=== PATIENT | female | born 1980 | race Hispanic/Latino ===

== ENCOUNTER 2018-11-09 17:43 | Day surgery (SDC) | payer MEDICAID, OTHER ==
[2018-11-09 18:22] VITALS: BMI 34.9
[2018-11-09 18:35] VITALS: BP 130/73; TEMP 98.7
[2018-11-09 20:04] LABS: Bilirubin Negative (Negative); Blood, Urine Negative (Negative); Clarity CLEAR (Clear); Glucose, Urine (Dipstick) 250 mg/dL (Negative); Leukocyte Trace (Negative); Nitrite Negative (Negative); Protein, Urine (Dipstick) Negative (Neg-Trace); pH, Urine 5.5 (5.0-9.0)
[2018-11-09 20:06] LABS: Bacteria/HPF None Seen HPF (None Seen); Hyaline Casts/LPF 0-3 HYALINE CAST LPF (0-3 Hyaline); Pathc Cast-AUWi Flag 0.87 (0-2.49); RBC/HPF 0-3 HPF (0-3); Squamous Epithelial 0-3 HPF (0-3); WBC/HPF 0-3 HPF (0-3)
[2018-11-09 20:15] LABS: #Eosinphils 0.1 thou/uL (0.0-0.7); #Monocytes 0.6 thou/uL (0.11-0.59); #Neutrophils 6.7 thou/uL (1.40-6.50); %Basophils 0.1 % (0.0-1.0); %Eosinophils 1.1 % (0.0-10.0); %Lymphocytes 12.1 % (21.0-51.0); %Monocytes 6.7 % (0.0-10.0); Hemoglobin 13.4 g/dL (12.0-16.0); Mean Corpuscular Hemoglobin 32.4 pg (27.0-31.0); Mean Corpuscular Volume 92.8 fL (78.0-98.0); Mean Platelet Volume 8.5 fL (7.4-10.4); Platelet Count 148 thou/uL (130-400); RBC Distribution Width 13.2 % (11.5-14.5); Red Blood Cell (RBC) Count 4.12 mill/uL (4.20-5.40); White Blood Cell (WBC) Count 8.3 thou/uL (4.8-10.8)
[2018-11-09 20:16] LABS: Crystals/HPF None Seen HPF (Negative)
[2018-11-09 20:34] LABS: ALT (SGPT) 18 U/L (8-55); AST (SGOT) 32 U/L (5-34); Albumin 3.6 g/dL (3.5-5.0); Alkaline Phosphatase 112 U/L (40-150); Anion Gap 13 mmol/L (10-20); BUN (Urea Nitrogen) 7 mg/dL (7.0-18.7); Bilirubin, Total 0.7 mg/dL (0.2-1.2); Calc. Creatinine Clearance 215 mL/min (70-130); Calcium 9.3 mg/dL (7.8-10.44); Carbon Dioxide 21 mmol/L (22-29); Chloride 105 mmol/L (98-107); Estimated GFR-MDRD Greater than 90; Globulin 3.8 g/dL (2.4-3.5); Glucose 109 mg/dL (70-105); Potassium 3.9 mmol/L (3.5-5.1); Protein, Total 7.4 g/dL (6.0-8.3); Sodium 135 mmol/L (136-145)
--- NOTE | 2018-11-10 03:55 | SS ---
DATE OF ADMISSION: 11/09/2018 DATE OF DISCHARGE: 11/09/2018 LABOR AND DELIVERY TRIAGE NOTE: DATE OF EVALUATION: 11/09/2018. REGULAR PHYSICIAN: Janeen Bejarano MD. EVALUATING PHYSICIAN: Wu Gardner MD CHIEF COMPLAINT: Lower back discomfort, nausea, vomiting, vaginal discharge, and toothache. HISTORY OF PRESENT ILLNESS: Ms. Biswas is a 38-year-old , G5, P4, with an estimated date of confinement of 01/01/2019, who presents with multiple complaints this evening complaining of lower abdominal cramping with back discomfort, nausea with an episode of vomiting, yellow vaginal discharge, and a toothache that she states she has had over the last several days. She denies active vaginal bleeding or ruptured membranes. Her care has been with Dr. Janeen Bejarano and has been complicated by gestational diabetes for which she is on metformin. PAST OBSTETRICAL HISTORY: Four vaginal deliveries, 2 of these were at 34 and 35 weeks respectively. PAST MEDICAL HISTORY: None. CURRENT MEDICATIONS: vitamins and metformin. PAST SURGICAL HISTORY: Includes stripping of varicose veins. ALLERGIES: NO KNOWN ALLERGIES. SOCIAL HISTORY: She denies tobacco, alcohol, or drug use. FAMILY HISTORY: Unremarkable. REVIEW OF SYSTEMS: Positive for nausea, vomiting, toothache, and vaginal discharge. She denies fever or chills. PHYSICAL EXAMINATION: VITAL SIGNS: Stable. She is afebrile. HEENT: back molar broken, gum is swollen ABDOMEN: Soft, nontender, and gravid. heart tones are stable. There are no decelerations. No uterine contractions are seen. LABORATORY DATA: White count is 8.3, hemoglobin and hematocrit 13.4 and 38.2, and platelet count 148,000. Chemistry; sodium 135, potassium 3.9, BUN of 7, creatinine 0.59, glucose is 113, and bilirubin 0.7. AST and ALT are 32 and 18. Urinalysis is clear with negative blood, negative nitrites, and trace leukocyte esterase. No bacteria were seen on microscope. ASSESSMENT: 1. 32 and 3/7th week intrauterine . 2. No evidence of labor, urinary tract infection. 3. Toothache. PLAN: At this time, we will discharge her to home with precautions. I did empirically give her prescriptions for amoxicillin 500 mg one p.o. 4 times a day for 10 days as well as Flagyl 250 mg one p.o. t.i.d. for 10 days. She states that she is in the process in trying to find a dentist. She will follow up per her routine with Dr. Bejarano. She voiced understanding of all our discharge instructions and was sent home in good condition. Job ID: [id number] MTDD
== END 2018-11-09 23:39 | disposition home or self-care (01) ==
LOC: L&D/OP 17:43
PROVIDERS: ATTEND Student in an Organized Health Care Education/Training Program
DX: O23.43 Unspecified infection of urinary tract in pregnancy, third trimester (principal); O99.89 Other specified diseases and conditions complicating pregnancy, childbirth and the puerperium; K08.89 Other specified disorders of teeth and supporting structures; M54.5 Low back pain; R10.30 Lower abdominal pain, unspecified; N89.8 Other specified noninflammatory disorders of vagina; O24.415 Gestational diabetes mellitus in pregnancy, controlled by oral hypoglycemic drugs; Z3A.32 32 weeks gestation of pregnancy; Z79.84 Long term (current) use of oral hypoglycemic drugs; Z79.899 Other long term (current) drug therapy
CPT/HCPCS: 36415; 36416; 80053; 81003; 81015; 85025; 87480; 87510; 87660

== ENCOUNTER 2018-12-16 13:59 | Day surgery (SDC) | payer OTHER ==
[2018-12-16 14:37] VITALS: BMI 35.1
[2018-12-16 14:41] VITALS: BP 128/83; TEMP 98.2
--- NOTE | 2018-12-16 15:38 | PDOC.FPROB ---
FMR OB H&P: HPI - History of Present Illness Chief Complaint: green discharge, irregular cxns Indentification: at 37.5 wks History of Present Illness: This is a woman at 37.5wks GA who comes in for evaluation of discharge and abdominal pain going on for 3 days. She describes the discharge as thick and green. Denies irritation or pain in the vagina. She denies burning or blood with urination. She denies any new sexual partners, SO in the room also denies new sexual partners. Patient was treated for gonorrhea at week 8 of the with MIRANDA. Patient also received a course of flagyl and amoxicillin mid -November for treatment of a dental infection. + FM. She describes contractions as abdominal "hardening, like a brick" happens every hour about 3-4 times a day. Patient is scheduled for induction 12/18/18 for GDM Primary Care Physician: Ron FMR OB H&P: Current - Care : 5 Para: 4 Gestational age: 37.5 Due date: 01/01/19 Course/Complications: +cfDNA for T21 - OB Labs Gonorrhea: negative Chlamydia: positive A1c: 5.Nov FMR OB H&P: History - Past Medical History PMH: Bipolar, MDD, GDM - OB History OB History: at 34, 35, 37 and 38 weeks Has been receiving mikena shots this up to 36 wks - QUANTITATIVE ANALYST History QUANTITATIVE ANALYST History: ASCUS PAP this a previously provider told her she needed a LEEP but she never followed up + chlamydia early this - Surgical History Sx History: denies abdominal surgeries or d&c - Social History Social History: denies smoking, alc, drugs this FMR OB H&P: Medications - Current Home Medications: Medication Instructions Recorded Confirmed Type PNV With CA,No.71/Iron/FA 2 tablet PO DAILY 02/10/15 12/18/18 History [ Vitamin Tablet] metFORMIN HCl [Metformin HCl] 1,000 mg PO BID 11/09/18 12/18/18 History Allergies/Adverse Reactions: Allergies Allergy/AdvReac Type Severity Reaction Status Date / Time No Known Drug Allergies Allergy Verified 11/09/18 18:43 FMR OB H&P: ROS - Review of Systems General: denies: fever/chills, night sweats, fatigue Eyes: denies: eye pain, double vision ENT: denies: rhinorrhea, sore throat, trouble with swallowing Cardiovascular: denies: chest pain, palpitation Respiratory: denies: cough, congestion, shortness of breath Gastrointestinal: reports: abdominal pain (cxns). denies: bloating, cramping, nausea, vomiting, diarrhea Genitourinary (Female): reports: hesitancy. denies: dysuria, hematuria Musculoskeletal: denies: stiffness, tenderness Neurologic: denies: numbness, syncope, seizures Integumentary: denies: itching, rash FMR OB H&P: Vital Signs - Maternal Vital signs: Vital Signs - First Documented Temp Pulse Resp BP 98.2 F 103 H 103 H 128/83 12/16/18 14:37 12/16/18 14:37 12/16/18 14:37 12/16/18 14:37 - Heart Tones Baseline: 140 Variability: moderate Acceleration: present Deceleration: absent [place] contractions every: x1 in 20 minutes FMR OB H&P: Physical Exam - Physical Exam General: NAD, awake, alert and oriented HEENT: normocephalic and atraumatic, PERRLA, EOMI Breast: symmetric, non-tender Heart: RRR, normal S1/S2, no murmurs/rubs/gallops General: CTAB, no respiratory distress, good air movement, no wheezing Abdomen: soft, gravid, fundus(cm), non-tender, bowel sound present Musculoskeletal: normal gait and station, pulses present Neurological: cranial nerves II through XII intact, sensation to pain,touch and proprioception grossly normal Skin: no rash, good tugor, capillary refill <2 seconds Lymphatic: no unusual bruising or bleeding Psychiatric: intact recent and remote memory - Pelvic Exam SVE: /-2 FMR OB H&P: A/P - Problem List (1) Status: Resolved Discussion: Date/Time: 12/16/18 1535 at 37.5 wks here for vaginal d/c - hx of chlamydia this w/ MIRANDA - recently treated with amox/flagyl for toothache - will check GC/CT - UA negative for infxn, + glucose - no evidence of cxns - scheduled for IOL 12/18/18 2/2 GDM - checked in office 3 days ago 2cm at that time, /2 today - Reactive NST - GC/CT should be back by 12/18/18 in time for induction - discussed triage precautions This H&P was discussed with Dr. Bui who agrees with the above documentation and plan. Addendum - Attending - Attending Attestation Date/Time: 12/18/18 0903 I personally evaluated the patient and discussed the management with Dr. Lake I agree with the History, Examination, Assessment and Plan documented above with any addition or exceptions noted below. GC/CT pending
[2018-12-16 15:59] LABS: Bilirubin Negative (Negative); Blood, Urine Negative (Negative); Clarity CLEAR (Clear); Glucose, Urine (Dipstick) >=1000 mg/dL (Negative); Leukocyte Negative (Negative); Nitrite Negative (Negative); Protein, Urine (Dipstick) Trace mg/dL (Neg-Trace); Specific Gravity, Urine 1.035 (1.002-1.036); pH, Urine 5.5 (5.0-9.0)
[2018-12-16 16:02] LABS: Bacteria/HPF None Seen HPF (None Seen)
[2018-12-16 16:04] LABS: Pathc Cast-AUWi Flag 5.52 (0-2.49)
[2018-12-16 16:14] LABS: RBC/HPF 0-3 HPF (0-3)
[2018-12-16 16:15] LABS: Crystals/HPF 2+ CA OXALATE HPF (Negative); Hyaline Casts/LPF 0-3 HYALINE CAST LPF (0-3 Hyaline); Other Casts/LPF None Seen LPF (0-3 Hyaline)
[2018-12-16 16:17] LABS: Urine Culture Reflex No No
[2018-12-18 22:19] LABS: Chlamydia by PCR Not Detected (NotDetected); GC by PCR Not Detected (NotDetected)
== END 2018-12-16 16:48 | disposition home or self-care (01) ==
LOC: L&D/OP 13:59
PROVIDERS: ATTEND Obstetrics & Gynecology
DX: O99.89 Other specified diseases and conditions complicating pregnancy, childbirth and the puerperium (principal); N89.8 Other specified noninflammatory disorders of vagina; O99.343 Other mental disorders complicating pregnancy, third trimester; F31.9 Bipolar disorder, unspecified; O24.419 Gestational diabetes mellitus in pregnancy, unspecified control; O98.813 Other maternal infectious and parasitic diseases complicating pregnancy, third trimester; Z3A.37 37 weeks gestation of pregnancy
CPT/HCPCS: 51701; 81001; 87491; 87591; 99283; A4353

== ENCOUNTER 2018-12-18 06:00 | Inpatient (IN) | payer OTHER ==
--- NOTE | 2018-12-17 15:45 | PDOC.LDHP ---
Labor and Delivery H&P Chief complaint: scheduled induction HPI: 38 yo @ 38w0d by LMP c/w 9 week CRL who presents for IOL due to A2DM on Metformin. 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 Current gestational age (weeks): 38 Due date: 01/01/19 Dating criteria: last menstrual period Grav: 5 Para: 4 OB History Details: 2 SVDs 2 term SVDs Current complications: gestational diabetes, other (Fetus trisomy 21 mosaic AMA H/o PTD) Abnormal US findings: No Past Medical History: Obesity Current medications: pre-prince vitamins, other (Metformin 1500 mg QAM, 1000 mg QHS) Previous surgical history: other (Treatment of varicose veins) Allergies/Adverse Reactions: Allergies Allergy/AdvReac Type Severity Reaction Status Date / Time No Known Drug Allergies Allergy Verified 11/09/18 18:43 Social history: none - Physical Exam Vital signs reviewed and normal: yes General: NAD Heart: RRR Lungs: nonlabored breathing Abdomen: gravid Extremeties: no edema FHT: category 1 (130s, mod akshat, +accels, no decesl) [place] contractions every: q2-5 min - Vaginal Exam cm dilated: 4 (per RN exam ) Effacement: 50% Station: -2 - OB Labs Blood type: O RH: positive Antibody Screen: negative HIV: negative RPR: negative HEPSAg: negative 1 hour GCT: positive 3 hour GTT: not done due to 1hr = 243 GBS: positive Urine drug screen: not done Rubella: immune Additional Labs: Amnio mosaic T21 msAFP wnl 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 FOB negative CT + > MIRANDA negative - Assessment 38w0d IUP A2DM AMA Fetus with Trisomy 21 mosaic H/o PTD + CT, negative MIRANDA GBS+ EFW > 90% - Plan Plan: admit to L&D (IOL with pitocin), GBS antibiotic prophylaxis, informed consent obtained, anesthesia consult for pain management -: NICU consult due to Trisomy 21 mosaic on amniocentesis (no abnormal anatomical findings on MFM evaluation). Collect cord blood for confirmation at delivery. Risk of possible macrosomia reviewed with pt.
[2018-12-18] MEDS ORDERED: Ibuprofen 800 MG TAB PO PRN (07:01)
[2018-12-18] MEDS ORDERED: Acetaminophen 500 MG TAB PO PRN (07:01)
[2018-12-18] MEDS ORDERED: HYDROcodone/Acetaminophen 5/325 mg Tablet PO PRN ×2 (07:01→15:59)
[2018-12-18] MEDS ORDERED: Carboprost 250 MCG/ML AMP IM PRN (07:01)
[2018-12-18] MEDS ORDERED: NS / Oxytocin 40 units/1000ml 1,000 ML IV PRN (07:01)
[2018-12-18] MEDS ORDERED: Diphenoxylate HCl/Atropine Tablet PO PRN (07:01)
[2018-12-18] MEDS ORDERED: Penicillin G Potassium 5 MILL.UNITS in Sodium Chloride 0.9% 100 ML IVPB SCH (07:01)
[2018-12-18] MEDS ORDERED: Misoprostol 200 MCG TAB PR PRN (07:01)
[2018-12-18] MEDS ORDERED: Butorphanol Tartrate 1 MG/ML VIAL SLOW IVP PRN (07:01)
[2018-12-18] MEDS ORDERED: Methylergonovine 0.2 MG/ML VIAL IM PRN ×2 (07:01→15:59)
[2018-12-18] MEDS ORDERED: Ondansetron PF 4 MG/2 ML Vial IVP PRN ×2 (07:01→11:23)
[2018-12-18] MEDS ORDERED: Promethazine HCl 25 MG/ML VIAL IM PRN ×2 (07:01→11:23)
[2018-12-18] MEDS ORDERED: Lidocaine 1% (PF) 30 ML VIAL SC PRN (07:01)
[2018-12-18 07:06] VITALS: BMI 36.1
[2018-12-18] MEDS: Lactated Ringer's 1,000 ML IV SCH ×2 (07:20→11:26)
[2018-12-18] MEDS: NS w/ Oxytocin 10 units 500 ML IV SCH ×2 (07:32→23:24)
[2018-12-18 08:33] LABS: Hemoglobin 12.7 g/dL (12.0-16.0); Mean Corpuscular HGB CONC 35.1 g/dL (32.0-36.0); Mean Corpuscular Hemoglobin 32.9 pg (27.0-31.0); Mean Corpuscular Volume 93.6 fL (78.0-98.0); Mean Platelet Volume 9.3 fL (7.4-10.4); Platelet Count 173 thou/uL (130-400); RBC Distribution Width 12.6 % (11.5-14.5); Red Blood Cell (RBC) Count 3.87 mill/uL (4.20-5.40); White Blood Cell (WBC) Count 8.5 thou/uL (4.8-10.8)
[2018-12-18 09:11] LABS: Syphilis Antibody Nonreactive (Nonreactive); Syphilis Antibody Index 0.05 S/CO (<1.00 Non-Reactive)
[2018-12-18 09:13] LABS: HBSAg Index 0.19 S/CO (0-0.99); HIV (1/2) Antibody/Antigen Non-Reactive (NonReactive); HIV 1/2 INDEX 0.08 S/CO (<1.00); Hep B Surf Ag Non-Reactive S/CO (NonReactive)
[2018-12-18] MEDS ORDERED: Fentanyl 4 mcg/Bup 0.1% Cadd 100 ML ONE (10:47)
[2018-12-18] MEDS ORDERED: Lidocaine 1.5%/Epinephrine 1:200,000 5 ML AMPUL IJ ONE ×2 (10:48→10:50)
[2018-12-18] MEDS ORDERED: ePHEDrine/0.9% NaCl/PF SYRINGE 50 mg/10 ml SLOW IVP PRN (11:23)
[2018-12-18] MEDS ORDERED: Naloxone HCl 0.4 mg/ml Vial IVP PRN ×2 (11:23)
[2018-12-18] MEDS ORDERED: diphenhydrAMINE 50 MG/ML VIAL IVP PRN (11:23)
[2018-12-18] MEDS ORDERED: Eucerin (Mineral Oil/Petrolatum,White) 30 gm Jar TOP PRN (11:23)
[2018-12-18] MEDS ORDERED: Acetaminophen 325 MG TAB PO PRN (11:23)
[2018-12-18] MEDS ORDERED: Lactated Ringer's 500 ML IV PRN (11:23)
[2018-12-18] MEDS ORDERED: Communication Order-Pharmacy FS SCH (11:30)
[2018-12-18] MEDS ORDERED: Fentanyl 4 mcg/Bupivacaine 0.1% Cassette 100 ML EPIDURAL SCH (11:30)
[2018-12-18] MEDS: Penicillin G 2.5 MILL.units 2.5 MILL.UNITS in Premix Bag 1 BAG IVPB SCH ×4 (12:10→23:23)
--- NOTE | 2018-12-18 12:37 | PDOC.LDPN ---
Labor & Delivery Progress Note - Subjective Subjective: comfortable - Objective Vital signs reviewed and normal: yes General: NAD Uterine fundus: non tender Dilation: 4 Effacement: 50% Station: -2 FHT: category 2 (130s, mod akshat, +accels, some variable decels wtih ctx after srom) [place] contractions every: q3 min Procedures: SROM clear fluid with SVE IUPC placed: yes - Assessment (1) 38 weeks gestation of Code(s): Z3A.38 - 38 WEEKS GESTATION OF Current Visit: Yes Status : Acute (2) Gestational diabetes Code(s): O24.419 - GESTATIONAL DIABETES MELLITUS IN , UNSP CONTROL Current Visit: Yes Status: Acute (3) AMA (advanced maternal age) multigravida 35+ Code(s): O09.529 - SUPERVISION OF ELDERLY MULTIGRAVIDA, UNSPECIFIED TRIMESTER Current Visit: Yes Status: Acute (4) Trisomy 21 of fetus in current diallo Code(s): O35.1XX0 - MATERNAL CARE FOR CHROMOSOMAL ABNORMALITY IN FETUS, UNSP Current Visit: Yes Status: Acute Plan: resuscitative measures -: Continue pitocin GBS PPX If variables continue consider amnioinfusion Accuchecks in labor
[2018-12-18 13:47] LABS: Amphetamine Not Detected (NotDetected); Barbiturates Screen Not Detected (NotDetected); Benzodiazepine Screen Not Detected (NotDetected); Cocaine Metabolite Screen Not Detected (NotDetected); Medtox Control Line Valid? VALID (VALID); Medtox Reader # READER 4; Methadone Not Detected (NotDetected); Methamphetamine Not Detected (NotDetected); Opiate Screen Not Detected (NotDetected); Oxycodone Screen Not Detected (NotDetected); Phencyclidine (PCP) Not Detected (NotDetected); THC/Cannabinoid Screen Not Detected (NotDetected); Tricyclic Screen Not Detected (NotDetected)
[2018-12-18] MEDS ORDERED: NS / Oxytocin 40 units/1000ml 1,000 ML ONE (14:27)
[2018-12-18] MEDS ORDERED: Lidocaine 1% (PF) 30 ML VIAL ONE (14:27)
--- NOTE | 2018-12-18 15:12 | PDOC.OPDEL ---
OB Operative/Delivery Note Delivery Dr/Surgeon: Ciera Velasquez DO Pre-Delivery Diagnosis: medically indicated induction Procedure/Post Delivery Dx: spontaneous vaginal delivery Weeks gestation: 38 Anesthesia: epidural - Findings A Sex: female - 1 min: 8 - 5 min: 9 - Additional Findings/Plan Placenta delivered: manual removal Repaired Obstetrical Laceration: none Estimated blood loss: QBL 686 mL Compilations/Other Findings: in cephalic presentation. JANNETTE atony leading to increase QBL. Methergine, hemabate and cytotec given with resolution of atony and resolution of bleeding. Normal appearing placenta. Chromosomal analysis collected from cord blood Post delivery plan: routine recovery
[2018-12-18] MEDS ORDERED: NS / Oxytocin 40 units/1000ml 1,000 ML IV SCH (15:59)
[2018-12-18] MEDS ORDERED: diphenhydrAMINE 25 MG CAP PO PRN (15:59)
[2018-12-18] MEDS ORDERED: Preparation H Ointment 28 GM TUBE PR PRN (15:59)
[2018-12-18] MEDS ORDERED: Benzocaine/Menthol 20-0.5% 60 ML CAN TOP PRN (15:59)
[2018-12-18] MEDS ORDERED: Bisacodyl 10 MG SUPP PR PRN (15:59)
[2018-12-18] MEDS ORDERED: Lanolin Ointment 7 GM TUBE TOP PRN (15:59)
[2018-12-18] MEDS ORDERED: Milk Of Magnesia 30 ML UDCUP PO PRN (15:59)
[2018-12-18] MEDS: Ferrous Sulfate 325 MG TAB PO SCH (17:26)
[2018-12-18 19:20] LABS: #Eosinphils 0.1 thou/uL (0.0-0.7); #Lymphocytes 1.2 thou/uL (1.20-3.40); #Monocytes 0.8 thou/uL (0.11-0.59); #Neutrophils 10.3 thou/uL (1.40-6.50); %Eosinophils 0.5 % (0.0-10.0); %Monocytes 6.1 % (0.0-10.0); %Neutrophils 83.4 % (42.0-75.0); Hemoglobin 13.1 g/dL (12.0-16.0); Mean Corpuscular HGB CONC 34.5 g/dL (32.0-36.0); Mean Corpuscular Hemoglobin 32.7 pg (27.0-31.0); Mean Corpuscular Volume 94.8 fL (78.0-98.0); Mean Platelet Volume 8.9 fL (7.4-10.4); Platelet Count 150 thou/uL (130-400); RBC Distribution Width 12.5 % (11.5-14.5); Red Blood Cell (RBC) Count 3.99 mill/uL (4.20-5.40); White Blood Cell (WBC) Count 12.4 thou/uL (4.8-10.8)
[2018-12-18] MEDS: Ibuprofen 800 MG TAB PO SCH (20:04)
[2018-12-18] MEDS: Docusate Calcium (SURFAK) 240 MG CAP PO SCH (22:55)
[2018-12-19] MEDS: Ibuprofen 800 MG TAB PO SCH ×3 (05:21→21:31)
[2018-12-19 06:23] LABS: #Eosinphils 0.1 thou/uL (0.0-0.7); #Monocytes 0.6 thou/uL (0.11-0.59); #Neutrophils 5.3 thou/uL (1.40-6.50); %Basophils 0.4 % (0.0-1.0); %Eosinophils 1.5 % (0.0-10.0); %Lymphocytes 25.3 % (21.0-51.0); %Monocytes 6.9 % (0.0-10.0); %Neutrophils 65.9 % (42.0-75.0); Mean Corpuscular HGB CONC 34.4 g/dL (32.0-36.0); Mean Corpuscular Hemoglobin 32.7 pg (27.0-31.0); Mean Platelet Volume 8.4 fL (7.4-10.4); Platelet Count 145 thou/uL (130-400); RBC Distribution Width 12.6 % (11.5-14.5); Red Blood Cell (RBC) Count 3.67 mill/uL (4.20-5.40); White Blood Cell (WBC) Count 8.1 thou/uL (4.8-10.8)
--- NOTE | 2018-12-19 07:56 | PDOC.PP ---
Post Progress Note Post Day #: 1 PO intake tolerated: yes Flatus: yes Ambulation: yes Vital Signs (12 hours) Temp Pulse Resp BP BP Pulse Ox 12/19/18 05:20 97.9 F 84 16 117/62 12/18/18 23:25 98.2 F 81 16 110/59 L 12/18/18 20:35 98.4 F 94 18 119/61 95 Weight Weight 238 lb - Physical Examination General: NAD Respiratory: non-labored breathing Abdominal: no distention, appropriately TTP Fundus firm & at: umb Skin: no rash Neurological: no gross focal deficits Psychiatric: normal affect Result Diagrams: 12/19/18 06:15 Additional Labs: Post Labs Blood Type O POSITIVE 12/18/18 07:51 Hep Bs Antigen Non-Reactive S/CO (NonReactive) 12/18/18 07:51 - Assessment/Plan PPD1 s/p TSVD VSSAF Doing well lochia < menses Breast and bottelfeeding, LC consult Rh pos RImm DC home FU 4 wks for BTL
[2018-12-19] MEDS: Docusate Calcium (SURFAK) 240 MG CAP PO SCH ×2 (09:32→21:30)
[2018-12-19] MEDS: Ferrous Sulfate 325 MG TAB PO SCH ×2 (09:41→21:34)
[2018-12-19 10:38] LABS: Reference Lab Name NEOGENOMICS
[2018-12-19 10:39] LABS: Ref Lab Test Ordered CONST CHROM ANALYSIS
[2018-12-19] MEDS: Penicillin G 2.5 MILL.units 2.5 MILL.UNITS in Premix Bag 1 BAG IVPB SCH ×3 (14:15→21:34)
[2018-12-20] MEDS: Ibuprofen 800 MG TAB PO SCH ×2 (05:52→13:55)
[2018-12-20] MEDS: NS w/ Oxytocin 10 units 500 ML IV SCH (06:12)
--- NOTE | 2018-12-20 08:12 | PDOC.PP ---
Post Progress Note Post Day #: 1 Subjective: Pain and lochia minimal. Breast and bottle feeding, minimal at this time. receiving evaluation due to Trisomy 21 (reason for hold on d/c) PO intake tolerated: yes Flatus: yes Ambulation: yes Weight Weight 238 lb - Physical Examination General: NAD Cardiovascular: RRR Abdominal: no distention, appropriately TTP Fundus firm & at: below umbilicus Extremities: negative homans (B) Neurological: no gross focal deficits Psychiatric: A&Ox3 Result Diagrams: 12/19/18 06:15 Additional Labs: Post Labs Blood Type O POSITIVE 12/18/18 07:51 Hep Bs Antigen Non-Reactive S/CO (NonReactive) 12/18/18 07:51 (1) 38 weeks gestation of Code(s): Z3A.38 - 38 WEEKS GESTATION OF Status: Resolved (2) Gestational diabetes Code(s): O24.419 - GESTATIONAL DIABETES MELLITUS IN , UNSP CONTROL Status: Resolved (3) AMA (advanced maternal age) multigravida 35+ Code(s): O09.529 - SUPERVISION OF ELDERLY MULTIGRAVIDA, UNSPECIFIED TRIMESTER Status: Resolved (4) Trisomy 21 of fetus in current diallo Code(s): O35.1XX0 - MATERNAL CARE FOR CHROMOSOMAL ABNORMALITY IN FETUS, UNSP Status: Resolved (5) Vaginal delivery Code(s): O80 - ENCOUNTER FOR FULL-TERM UNCOMPLICATED DELIVERY Status: Acute - Assessment/Plan PPD2 VSSAF Stable for d/c home when infant ready for d/c
[2018-12-20] MEDS: Ferrous Sulfate 325 MG TAB PO SCH (08:15)
[2018-12-20] MEDS: Docusate Calcium (SURFAK) 240 MG CAP PO SCH (08:16)
[2018-12-20] MEDS: Penicillin G 2.5 MILL.units 2.5 MILL.UNITS in Premix Bag 1 BAG IVPB SCH ×2 (08:17→13:56)
[2018-12-20 08:51] VITALS: BP 114/67; TEMP 97.8
== END 2018-12-20 16:55 | disposition home or self-care (01) | DRG 807 ==
LOC: L&D 06:28 → 3SW 17:06
PROVIDERS: ADMIT Obstetrics & Gynecology; ATTEND Obstetrics & Gynecology
PROC: 10E0XZZ Delivery of Products of Conception, External Approach (ICD-10-PCS; principal; 2018-12-18)
DX: O24.425 Gestational diabetes mellitus in childbirth, controlled by oral hypoglycemic drugs (principal); Z37.0 Single live birth; O24.429 Gestational diabetes mellitus in childbirth, unspecified control; Z3A.38 38 weeks gestation of pregnancy; O35.1XX0 Maternal care for (suspected) chromosomal abnormality in fetus, not applicable or unspecified; Q90.9 Down syndrome, unspecified; O99.824 Streptococcus B carrier state complicating childbirth
CPT/HCPCS: 36415; 36416; 51702; 80306; 85025; 85027; 86780; 86850; 86900; 86901; 87340; 87389; J2001; J2210; J2540; J3490; J7050